=== PATIENT | female | born 1970 | race Two or more races ===

== ENCOUNTER 2017-09-01 13:12 | Emergency (ER) | payer SELFPAY ==
--- NOTE | 2017-09-01 15:43 | ER Document Report ---
ED General - General Chief Complaint: Anxiety Stated Complaint: ANXIETY Time Seen by Provider: 09/01/17 15:43 Notes: 47-year-old female patient to the emergency department chief complaint of anxiety. Patient states that she has chronic anxiety as well as depression. Patient denies being suicidal or homicidal. Denies hallucinations. States that she is just having trouble sleeping at night and anxious and agitated during the day. Recently started a new job 3 days ago. States that she ran out of all of her medications with exception of her thyroid medications. She is followed by the [facility] in [facility]. They prescribe her the thyroid medication. Patient states she is also followed by [facility] for her mental health medications. States that she has not taken Adderall recently. Had a few left and so started taking it and it makes her feel better and requesting a refill on Adderall 5 mg. Also states that every now and then she is having some blurred vision. Went to the forge tender at [facility] and told her everything was okay. TRAVEL OUTSIDE OF THE [place] IN LAST 30 DAYS: No - Related Data Allergies/Adverse Reactions: No Known Allergies Allergy (Unverified 09/01/17 13:16) Past Medical History - General Information source: Patient - Social History Smoking Status: Current Every Day Smoker Frequency of alcohol use: None Drug Abuse: None Lives with: Family Family History: Reviewed & Not Pertinent Review of Systems - Review of Systems Constitutional: denies: Fever, Malaise, Weakness EENT: Blurred vision. denies: Eye pain, Difficulty swallowing, Mouth swelling Cardiovascular: denies: Chest pain, Palpitations, Heart racing Respiratory: denies: Cough, Hurts to breathe, Short of breath, Wheezing Gastrointestinal: denies: Abdominal pain, Diarrhea, Nausea, Vomiting Genitourinary: No symptoms reported Female Genitourinary: No symptoms reported Musculoskeletal: No symptoms reported Skin: No symptoms reported Hematologic/Lymphatic: No symptoms reported Neurological/Psychological: No symptoms reported, Other - Anxiety, depression. 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 Pupils: PERRL - Respiratory Respiratory status: No respiratory distress Chest status: Nontender Breath sounds: Normal Chest palpation: Normal - Cardiovascular Rhythm: Regular Heart sounds: Normal auscultation Murmur: No - Abdominal Inspection: Normal Distension: No distension Bowel sounds: Normal Tenderness: Nontender Organomegaly: No organomegaly - Back Back: Normal, Nontender - Extremities General upper extremity: Normal inspection, Nontender, Normal color, Normal ROM , Normal temperature General lower extremity: Normal inspection, Nontender, Normal color, Normal ROM , Normal temperature, Normal weight bearing. No: Dwayne's sign - Neurological Neuro grossly intact: Yes Cognition: Normal Orientation: AAOx4 [place] Coma Scale Eye Opening: Spontaneous [place] Coma Scale Verbal: Oriented Mike Coma Scale Motor: Obeys Commands [place] Coma Scale Total: 15 Speech: Normal Motor strength normal: LUE, RUE, LLE, RLE Sensory: Normal - Psychological Associated symptoms: Normal affect, Normal mood - Skin Skin Temperature: Warm Skin Moisture: Dry Skin Color: Normal Course - Re-evaluation Re-evalutation: 09/01/17 16:09 At this time I was able to get in touch with the [facility]. They did a recent TSH on her which was 2.9. This is within the normal range. They did not do a free T4 or T3 09/01/17 16:16 A [place] prescription monitoring program query was done. No controlled prescription data was seen. Will provide her one week's worth of medication. Patient encouraged to follow-up with [facility] as well as [facility]. - Vital Signs Vital signs: Temp Pulse Resp BP Pulse Ox 98.6 F 83 16 151/99 H 98 09/01/17 13:36 09/01/17 13:36 09/01/17 13:36 09/01/17 13:36 09/01/17 13:36 Discharge - Discharge Clinical Impression: Anxiety Condition: Good Disposition: HOME, SELF-CARE Instructions: Anxiety ([facility]) Additional Instructions: Please follow-up with your mental health provider for further prescriptions. Return immediately for any worsening symptoms or concerns especially if you have thoughts of suicidal ideation, hallucinations or other significant mental health issues. Prescriptions: Alprazolam 0.25 mg PO BID PRN 7 Days #14 tablet PRN Reason: Dextroamphetamine/Amphetamine [Adderall 5 mg Tablet] 5 mg PO DAILY PRN 7 Days # 7 tablet PRN Reason: Referrals: [facility] [Provider Group] - Follow up as needed [facility] [Provider Group] - Follow up in 3-5 days
[2017-09-01 17:00] VITALS: BP 168/102
== END 2017-09-01 17:05 | disposition home or self-care (01) ==
LOC: ER 13:12
DX: F41.9 Anxiety disorder, unspecified (principal); F17.200 Nicotine dependence, unspecified, uncomplicated
CPT/HCPCS: 99283

== ENCOUNTER → 2018-04-19 | Outpatient (CLI) | payer OTHER ==
[2018-04-19 16:55] LABS: ALANINE AMINOTRANSFERASE 11 U/L (9-52); ALBUMIN 4.4 g/dL (3.5-5.0); ALKALINE PHOSPHATASE 61 U/L (38-126); ANION GAP 9 (5-19); ASPARTATE AMINO TRANSFERASE 10 U/L (14-36); BILIRUBIN,DIRECT 0.3 mg/dL (0.0-0.4); BILIRUBIN,TOTAL 0.7 mg/dL (0.2-1.3); BLOOD UREA NITROGEN 16 mg/dL (7-20); CALCIUM 9.7 mg/dL (8.4-10.2); CARBON DIOXIDE 31 mmol/L (22-30); CHLORIDE 103 mmol/L (98-107); GLUCOSE 118 mg/dL (75-110); POTASSIUM 4.6 mmol/L (3.6-5.0); SODIUM 143.1 mmol/L (137-145); TOTAL PROTEIN 7.6 g/dL (6.3-8.2)
== END ==
LOC: CCC 15:49
DX: Z85.850 Personal history of malignant neoplasm of thyroid (principal)
CPT/HCPCS: 36415; 80053; 84436; 84443